=== PATIENT | male | born 1970 | race Caucasian/White ===

== ENCOUNTER 2022-01-27 09:06 | Outpatient (CLI) | payer OTHER, SELFPAY | END 2022-01-27 09:07 | disposition home or self-care (01) | LOC: NFLDREF 09:07 | PROVIDERS: PCP Internal Medicine; Visit Provider Internal Medicine | DX: R35.0 Frequency of micturition (principal) | CPT/HCPCS: 87086 ==

== ENCOUNTER 2022-05-25 12:46 | Outpatient (CLI) | payer OTHER, SELFPAY ==
--- NOTE | 2022-05-25 13:00 | CRLHL7_ITS ---
For Patients: As a result of the Century Cures Act, medical imaging exams and procedure reports are released immediately into your electronic medical record. You may view this report before your referring provider. If you have questions, please contact your health care provider. INDICATION: Low back pain. TECHNIQUE : Lumbar spine MRI without contrast. The following sequences were obtained: Sagittal T1, T2 weighted and STIR sequences. Axial T1 and T2 weighted sequences. COMPARISON: Lumbar spine radiographs from 04/28/2022. FINDINGS : Five lumbar type vertebral bodies, with the last fully formed disc space designated as L5-S1. Normal lumbar lordotic curve. No recent compression fracture or marrow replacing process. Lower cord/conus signal is normal. The conus terminates at a normal location. No intradural lesion. No extraspinal soft tissue abnormalities. Discs/Endplates: At L4-5 and L5-S1, moderate disc height loss, disc desiccation and degenerative endplate remodeling. Type 2 reactive marrow changes at both levels. The other discs are within normal limits. Findings at individual levels as follows: T12-L1: No spinal canal or neural foraminal stenosis. L1-2: No spinal canal or neural foraminal stenosis. L2-3: No spinal canal or neural foraminal stenosis. L3-4: No spinal canal or neural foraminal stenosis. L4-5: A 5 millimeter AP dimension right subarticular disc extrusion with caudal migration impinges the traversing right L5 nerve root. Bilateral grade facet arthrosis. Mild bilateral foraminal stenosis. No spinal canal stenosis. L5-S1: Mild disc bulge with overlying osteophytic ridging and tiny left medial foraminal protrusion component measuring 5 millimeters in AP dimension. Bilateral low-grade facet arthrosis. Mild right and [id number] left neural foraminal stenosis. No spinal canal stenosis. Imaged SI joints: Within normal limits. Imaged sacrum: Within normal limits. IMPRESSION: 1. At L4-5, a right subarticular disc extrusion with caudal migration impinges the traversing right L5 nerve root. 2. At L5-S1, tiny left medial foraminal protrusion without gabo neural impingement. Mild right and mild to moderate left neural foraminal stenosis. 3. Moderate disc degeneration at L4-5 and L5-S1, with normal appearance of the remaining imaged discs. Dictated by Luis San MD @ 05/25/2022 3:53:08 PM (Electronically Signed)
== END 2022-05-25 12:47 | disposition home or self-care (01) ==
LOC: MRI 12:47
PROVIDERS: PCP Internal Medicine; Visit Provider Internal Medicine
DX: M54.50 Low back pain, unspecified (principal); M51.27 Other intervertebral disc displacement, lumbosacral region; M51.16 Intervertebral disc disorders with radiculopathy, lumbar region
CPT/HCPCS: 72148